=== PATIENT | female | born 1945 | race Caucasian/White ===

== ENCOUNTER 2024-11-16 17:12 | Inpatient (IN) | payer MEDICARE ==
[~2024-11-16] VITALS: Ht 167.6 cm; Wt 72.6 kg
[2024-11-16] MEDS ORDERED: HYDR25TA4 PO (18:25)
[2024-11-16] MEDS ORDERED: MIRT45TA83 PO (18:25)
[2024-11-16] MEDS ORDERED: TRAZ-182 PO (18:25)
[2024-11-16] MEDS ORDERED: QUETIAPINE FUMARATE 25 MG TABLET PO PRN ×2 (19:00)
[2024-11-16] MEDS ORDERED: ZOLPIDEM TARTRATE 5 MG TABLET PO PRN (19:00)
[2024-11-16] MEDS ORDERED: MAGNESIUM HYDROXIDE 30 ML UDC PO PRN (19:00)
[2024-11-16] MEDS ORDERED: MAG HYDROX/AL HYDROX/SIMETH 30 ML UDC PO PRN (19:00)
[2024-11-16] MEDS ORDERED: ACETAMINOPHEN 325 MG TABLET PO PRN (19:00)
[2024-11-16 19:20] VITALS: BP 117/58; TEMP 98.4; O2SAT 97
[2024-11-16 20:32] VITALS: BP 117/55; TEMP 98.4; O2SAT 97
[2024-11-17 08:00] VITALS: BP 145/69; TEMP 98.2; O2SAT 95
[2024-11-17 08:15] LABS: LDL 92 mg/dL (0-99)
[2024-11-17 08:35] LABS: ASPARTATE AMINOTRANSFERASE 35.0 U/L (15-37); CALCIUM, SERUM 9.0 mg/dL (8.5-10.1); CREATININE 1.0 mg/dL (0.6-1.3); SODIUM SERUM 142.0 mmol/L (136-145); TOTAL PROTEIN, SERUM 7.7 g/dL (6.4-8.2); UREA NITROGEN, BLOOD 28.0 mg/dL (7-18)
[2024-11-17] MEDS: HYDROCHLOROTHIAZIDE 25 MG TABLET PO SCH (10:52)
[2024-11-17 17:00] VITALS: BP 126/70; TEMP 98.4; O2SAT 95
[2024-11-17 19:47] VITALS: BP 141/77; TEMP 98.2; O2SAT 94
[2024-11-18 08:00] VITALS: BP 130/62; TEMP 97.9; O2SAT 96
[2024-11-18] MEDS: SERTRALINE HCL 25 MG TABLET PO SCH (09:00)
[2024-11-18 16:00] VITALS: BP 152/68; TEMP 97.8; O2SAT 96
[2024-11-18 20:14] VITALS: BP 144/62; TEMP 97.8; O2SAT 96
[2024-11-19 08:00] VITALS: BP 163/78; TEMP 98.6; O2SAT 98
[2024-11-19 16:00] VITALS: BP 158/67; TEMP 98.7; O2SAT 98
[2024-11-19 20:35] VITALS: BP 150/66; TEMP 97.8; O2SAT 98
[2024-11-20 08:00] VITALS: BP 152/56; TEMP 97.8; O2SAT 97
[2024-11-20 16:00] VITALS: BP 122/67; TEMP 99; O2SAT 95
[2024-11-20 19:58] VITALS: BP 131/62; TEMP 98.1; O2SAT 95
[2024-11-21 08:00] VITALS: BP 148/66; TEMP 97.5; O2SAT 93
[2024-11-21] MEDS: SERTRALINE HCL 25 MG TABLET PO SCH (08:03)
[2024-11-21 15:57] VITALS: BP 134/62; TEMP 98.2; O2SAT 98
[2024-11-21 20:36] VITALS: BP 140/65; TEMP 98.3; O2SAT 98
[2024-11-22 08:00] VITALS: BP 134/64; TEMP 98; O2SAT 97
[2024-11-22 16:00] VITALS: BP 150/76; TEMP 97.9; O2SAT 98
[2024-11-22 20:00] VITALS: BP 136/60; O2SAT 100
[2024-11-22 20:11] VITALS: BP 136/60; TEMP 97.7; O2SAT 98
[2024-11-23 08:00] VITALS: BP 149/60; TEMP 97.9; O2SAT 95
[2024-11-23 15:52] VITALS: BP 155/88; TEMP 98.2; O2SAT 95
[2024-11-23 20:09] VITALS: BP 138/61; TEMP 98.2; O2SAT 94
[2024-11-23] MEDS: ZOLPIDEM TARTRATE 5 MG TABLET PO PRN (21:40)
[2024-11-24 08:27] VITALS: BP 161/76; O2SAT 95
[2024-11-24] MEDS: AMLODIPINE BESYLATE 5 MG TABLET PO SCH (12:27)
[2024-11-24 16:00] VITALS: BP 139/56; TEMP 98.7; O2SAT 98
[2024-11-24 19:39] VITALS: BP 136/66; TEMP 98.4; O2SAT 98
[2024-11-25 08:00] VITALS: BP 149/96; TEMP 98; O2SAT 96
[2024-11-25] MEDS: TRIAMCINOLONE ACETONIDE 0.1% CR 15 GM TUBE TP SCH (11:28)
[2024-11-25] MEDS ORDERED: hydrOXYzine HCL SYRUP 10 MG/5 ML UDC PO PRN (12:30)
[2024-11-25 16:06] VITALS: BP 166/70; TEMP 97.7; O2SAT 92
[2024-11-25 19:43] VITALS: BP 139/64; TEMP 97.9; O2SAT 96
[2024-11-26 08:00] VITALS: BP 132/72; TEMP 97.8; O2SAT 96
[2024-11-26 16:00] VITALS: BP 152/59; TEMP 98.4; O2SAT 95
[2024-11-26 20:00] VITALS: BP 132/61; TEMP 97.7; O2SAT 100
[2024-11-27 08:00] VITALS: BP 168/66; TEMP 97.9; O2SAT 95
[2024-11-27] MEDS: LORAZEPAM 0.5 MG TABLET PO ONE (12:30)
[2024-11-27 13:54] VITALS: BP 180/78
== END 2024-11-27 14:05 | DRG 885 ==
LOC: ER 17:20 → GPS 18:21
PROVIDERS: ADMIT Psychiatry & Neurology Psychiatry; ATTEND Nurse Practitioner Acute Care
DX: F31.30 Bipolar disorder, current episode depressed, mild or moderate severity, unspecified (principal); R45.851 Suicidal ideations; Z59.00 Homelessness unspecified; F39 Unspecified mood [affective] disorder; F29 Unspecified psychosis not due to a substance or known physiological condition; I10 Essential (primary) hypertension; L25.9 Unspecified contact dermatitis, unspecified cause; F41.9 Anxiety disorder, unspecified; E78.00 Pure hypercholesterolemia, unspecified; Z79.899 Other long term (current) drug therapy
CPT/HCPCS: 36415; 80053-TC; 80061-TC; 87081-TC; Q0177